=== PATIENT | female | born 1970 | race Caucasian/White ===

== ENCOUNTER 2016-08-04 15:29 | Emergency (ER) | payer SELFPAY ==
[~2016-08-04] VITALS: Ht 157.5 cm; Wt 75.0 kg
[2016-08-04 15:50] VITALS: BP 134/81; PULSE 110; RESP 18; TEMP 99.1; O2SAT 99
[2016-08-04] MEDS ORDERED: HYDROmorphone HCL PF 1 MG/ML VIAL IV PUSH ONE ×3 (16:00→19:00)
[2016-08-04 16:30] VITALS: BP 133/82; PULSE 94; RESP 16; O2SAT 98
[2016-08-04 16:35] LABS: AUTOMATED NEUTROPHIL # 5.2 TH/MM3 (1.8-7.7); BASOPHIL # 0.1 TH/MM3 (0-0.2); BASOPHIL % 1.7 % (0.0-2.0); EOSINOPHIL # 0.1 TH/MM3 (0-0.4); EOSINOPHIL % 1.4 % (0.0-4.0); HEMATOCRIT 37.2 % (35.0-46.0); HEMO FLAGS DIFF FINAL; LYMPH % 29.9 % (9.0-44.0); LYMPHOCYTE # 2.6 TH/MM3 (1.0-4.8); MEAN CELL VOLUME 88.4 FL (80.0-100.0); MEAN CORPUSCULAR HEMOGLOBIN 30.7 PG (27.0-34.0); MEAN CORPUSCULAR HGB CONC 34.8 % (32.0-36.0); MONO % 9.1 % (0.0-8.0); NEUT % 57.9 % (16.0-70.0); PLATELET COUNT 366 TH/MM3 (150-450); RED BLOOD COUNT 4.21 MIL/MM3 (4.00-5.30); RED CELL DISTRIBUTION WIDTH 12.4 % (11.6-17.2); WHITE BLOOD COUNT 8.8 TH/MM3 (4.0-11.0)
[2016-08-04 16:42] LABS: CHLORIDE 107 MEQ/L (98-107); POTASSIUM 3.9 MEQ/L (3.5-5.1); SODIUM (NA) 140 MEQ/L (136-145)
[2016-08-04 16:46] LABS: ANION GAP 12 MEQ/L (5-15); BICARBONATE 21.1 MEQ/L (21.0-32.0); BLOOD UREA NITROGEN 8 MG/DL (7-18)
--- NOTE | 2016-08-04 16:46 | PD ---
HPI Chief Complaint: Fall Time Seen by Provider: 15:50 Travel History International Travel<30 days: No Contact w/Intl Traveler<30days: No Traveled to known affect area: No History of Present Illness HPI 46 year-old woman, otherwise healthy, was standing on a step stool, about 3 feet in the air, when she stepped backwards lost her footing and fell backwards landing and seated position on her butt and low back and onto her back. States she hit her head lightly as well. She states she has severe pain in her low back. Pain radiates down the left leg. No numbness tingling or weakness. No LOC. No headache. No head pain. Some neck pain. Denies history of neck or back problems. Does not take pain medicines regularly. Otherwise has been feeling generally well and healthy. History Past Medical History Medical History: Denies Significant Hx Tetanus Vaccination: > 5 Years Influenza Vaccination: Yes LMP: 2 weeks ago Social History Alcohol Use: Yes (occas. wine) Tobacco Use: Yes (1/2 ppd cigs) Allergies-Medications (Allergen,Severity, Reaction): Coded Allergies: No Known Allergies (Unverified , 08/04/16) Reported Meds & Prescriptions Reported Meds & Active Scripts Active Reported Ibuprofen 800 Mg Tab 800 Mg PO TID PRN Seroquel (Quetiapine Fumarate) 200 Mg Tab 200 Mg PO HS Xanax (Alprazolam) 0.5 Mg Tab 0.5 Mg PO TID PRN Levothyroxine (Levothyroxine Sodium) 125 Mcg Tab 125 Mcg PO DAILY Review of Systems Except as stated in HPI: all other systems reviewed are Neg Physical Exam Narrative GENERAL: Well-appearing 46 year-old woman, appears uncomfortable, a little bit tearful and diaphoretic. Full spinal mobilization. SKIN: Warm and dry. HEAD: Atraumatic. Normocephalic. EYES: Pupils equal and round. No scleral icterus. No injection or drainage. ENT: No nasal bleeding or discharge. Mucous membranes pink and moist. NECK: Minimal midline tenderness. Cervical collar in place. CARDIOVASCULAR: Regular rate and rhythm. No murmur appreciated. RESPIRATORY: No accessory muscle use. Clear to auscultation. Breath sounds equal bilaterally. GASTROINTESTINAL: Abdomen soft, non-tender, nondistended. Hepatic and splenic margins not palpable. MUSCULOSKELETAL: No obvious deformities. Significant low back tenderness. No step-offs deformities or ecchymosis or bruising. NEUROLOGICAL: Awake and alert. Strength appears full and equal in upper and lower extremities. Normal sensation in upper and lower extremities. Reflexes symmetrically diminished throughout. Data Data Last Documented VS Vital Signs Date Time Temp Pulse Resp B/P Pulse Ox O2 Delivery O2 Flow Rate FiO2 08/04/16 17:40 94 16 133/82 97 Room Air 08/04/16 15:[address] Cerv Spine W/O Contrast (08/04/16 ) Ct Thor Spine W/O Contrast (08/04/16 ) Ct Lumb Spine W/O Contrast (08/04/16 ) Iv Access Insert/Monitor (08/04/16 15:57) Complete Blood Count With Diff (08/04/16 15:57) Comprehensive Metabolic Panel (08/04/16 15:57) Act Partial Throm Time (Ptt) (08/04/16 15:57) Prothrombin Time / Inr (Pt) (08/04/16 15:57) Hydromorphone Pf Inj (Dilaudid Pf Inj) (08/04/16 16:00) Ct Pelvis W/O Iv Contrast (08/04/16 ) Hydromorphone Pf Inj (Dilaudid Pf Inj) (08/04/16 17:30) Labs Laboratory Tests Test 08/04/16 16:23 White Blood Count 8.8 TH/MM3 Red Blood Count 4.21 MIL/MM3 Hemoglobin 12.9 GM/DL Hematocrit 37.2 % Mean Corpuscular Volume 88.4 FL Mean Corpuscular Hemoglobin 30.7 PG Mean Corpuscular Hemoglobin 34.8 % Concent Red Cell Distribution Width 12.4 % Platelet Count 366 TH/MM3 Mean Platelet Volume 7.5 FL Neutrophils (%) (Auto) 57.9 % Lymphocytes (%) (Auto) 29.9 % Monocytes (%) (Auto) 9.1 % Eosinophils (%) (Auto) 1.4 % Basophils (%) (Auto) 1.7 % Neutrophils # (Auto) 5.2 TH/MM3 Lymphocytes # (Auto) 2.6 TH/MM3 Monocytes # (Auto) 0.8 TH/MM3 Eosinophils # (Auto) 0.1 TH/MM3 Basophils # (Auto) 0.1 TH/MM3 CBC Comment DIFF FINAL Differential Comment Prothrombin Time 10.5 SEC Prothromb Time International 1.0 RATIO Ratio Activated Partial 26.5 SEC Thromboplast Time Sodium Level 140 MEQ/L Potassium Level 3.9 MEQ/L Chloride Level 107 MEQ/L Carbon Dioxide Level 21.1 MEQ/L Anion Gap 12 MEQ/L Blood Urea Nitrogen 8 MG/DL Creatinine 0.83 MG/DL Estimat Glomerular Filtration 75 ML/MIN Rate Random Glucose 78 MG/DL Calcium Level 8.9 MG/DL Total Bilirubin 0.2 MG/DL Aspartate Amino Transf 15 U/L (AST/SGOT) Alanine Aminotransferase 34 U/L (ALT/SGPT) Alkaline Phosphatase 89 U/L Total Protein 7.4 GM/DL Albumin 3.7 GM/DL [facility] Medical Decision Making Medical Screen Exam Complete: Yes Emergency Medical Condition: Yes Interpretation(s) LABS: CBC unremarkable. CMP unremarkable. Coags unremarkable CT cervical spine: No acute osseous injury or traumatic listhesis. CT thoracic spine: Mild dextroscoliosis of the dorsal spine with associated multilevel degenerative spurring. No acute osseous injury. CT lumbar spine: Degenerative changes, no osseous injury. CT pelvis: 2 cm likely physiologic follicular cyst in left ovary. Otherwise negative. Differential Diagnosis Back, pelvis injury, strain or sprain, fracture, other Narrative Course Medical decision making INITIAL: Supple 46 year-old woman who presents emergency room with a fall from about 3 feet and near leaning on her butt and back complaining of severe low back pain radiating into her left leg. We'll check CT scan of her neck and back , as well as her bony pelvis. Pain control, reassess. FINAL: Imaging negative for fracture. Patient still extremely painful, difficulty moving. 2 mg of IV Dilaudid so far. We'll give her third dose of IV Dilaudid as well as IV Toradol. We will encourage mobility try to get her up and walking. If she is able to tolerate walking, 1 go home with Naprosyn and Percocet for pain, if not may need admission for pain control. Patient will be signed out to Dr. Grubbs to follow-up on the results of pain treatment , gait trial, and repeat assessment. Diagnosis Primary Impression: Back contusion Qualified Code: S20.229A - Back contusion, unspecified laterality, initial encounter Additional Instructions: Take Naprosyn as prescribed. Take her cassette as prescribed. Take Zonia-Colace to prevent constipation if taking Percocet. Follow up with her primary doctor in 1-2 days. Return emergent department for any worsening pain, numbness tingling or weakness , or any other new or worsening symptoms. Med/Other Pt SpecificInfo: Prescription(s) given Scripts Naproxen (Naprosyn)500 Mg [id number] Mg PO BID PRN (PAIN SCALE 1 TO 10) #20 TAB Prov:Dakotah Walker MD 08/04/16 Oxycodone-Acetaminophen (Percocet)5-325 mg Tab1-2 Tab PO Q6H PRN (PAIN) #20 TAB Ref 0 Prov:Dakotah Walker MD 08/04/16 Disposition: 01 DISCHARGE HOME Condition: Stable Dakotah Walker MD Aug 04, 2016 16:46
[2016-08-04 16:48] LABS: APTT (PATIENT) 26.5 SEC (24.3-30.1); PROTHROMBIN TIME - PATIENT 10.5 SEC (9.8-11.6)
[2016-08-04 16:49] LABS: ALT (GPT) 34 U/L (10-53); AST (GOT) 15 U/L (15-37); GLOMERULAR FILTRATION RATE 75 ML/MIN (>89)
[2016-08-04 16:50] LABS: TOTAL BILIRUBIN ADULT 0.2 MG/DL (0.2-1.0)
[2016-08-04 16:52] LABS: ALKALINE PHOSPHATASE 89 U/L (45-117)
[2016-08-04] MEDS ORDERED: ALPR.5 PO (17:12)
[2016-08-04] MEDS ORDERED: LEVO125T4 PO (17:12)
[2016-08-04] MEDS ORDERED: SERO200T PO (17:12)
[2016-08-04] MEDS ORDERED: IBUP800T23 PO (17:12)
[2016-08-04 17:40] VITALS: BP 133/82; PULSE 94; RESP 16; O2SAT 97
--- NOTE | 2016-08-04 18:24 | RADHPO ---
EXAM DATE/TIME: 08/04/2016 16:58 [facility] COMPARISON: No previous studies available for comparison. INDICATIONS : Fall backwards today, neck and lower back pain. RADIATION DOSE: 26.51 CTDIvol (mGy) MEDICAL HISTORY : None SURGICAL HISTORY : None. ENCOUNTER: Initial ACUITY: 1 day PAIN SCALE: 3/10 LOCATION: Bilateral neck TECHNIQUE: Volumetric scanning of the cervical spine was performed. Multiplanar reconstructions in the sagittal, coronal and oblique axial planes were performed. Using automated exposure control and adjustment o f the mA and/or kV according to patient size, radiation dose was kept as low as reasonably achievable to obtain optimal diagnostic quality images. FINDINGS: Sagittal and coronal reconstructions show multilevel degenerative disc disease most prominent from C4 -C5 through C6-C7 with loss of disc height and uncovertebral ridging. Vertebral body heights are ankit ntained throughout withiout evidence of an acute fracture. The uncovertebral ridging at C5-C6 and C6 -C7 does encroach on the spinal canal anteriorly. Spinal canal is otherwise adequate. Detailed axial images as follows: C2-C3: The bony spinal canal is normal in size. No evidence of disc bulge or herniation. The neural forami na are bilaterally patent. C3-C4: The bony spinal canal is normal in size. No evidence of disc bulge or herniation. The neural forami na are bilaterally patent. C4-C5: Predominantly anteriorly directed spur. Spinal canal and neural foramina are patent. C5-C6: Diffuse uncovertebral ridging. This encroaches on the anterior epidural space and both neural forami na. I do not see obvious cord compromise but there may be some compromise of the exiting C6 nerve ro ots. C6-C7: Uncovertebral ridging. Again, encroachment on the anterior epidural space and both neural foramina w ith possible compromise of the exiting C7 nerve roots. C7-T1: The bony spinal canal is normal in size. No evidence of disc bulge or herniation. The neural forami na are bilaterally patent. CONCLUSION: 1. Degenerative disc disease from C4-C5 through C6-C7. 2. This is most severe at C5-C6 and C6-C7 where there is some encroachment on the anterior epidural space and both neural foramina. This may be severe enough to compromise the exiting C6 and C7 nerve roots bilaterally. 3. No acute osseous injury or traumatic listhesis. Chadd Harris MD on August 04, 2016 at 18:09 Board Certified Radiologist. This report was verified electronically.
--- NOTE | 2016-08-04 18:38 | RADHPO ---
EXAM DATE/TIME: 08/04/2016 17:07 [facility] COMPARISON: No previous studies available for comparison. INDICATIONS : Fall backwards today, neck and lower back pain. RADIATION DOSE: 43.91 CTDIvol (mGy) ; Combined studies MEDICAL HISTORY : None SURGICAL HISTORY : None. ENCOUNTER: Initial ACUITY: 1 day PAIN SCALE: 10/10 LOCATION: Lower back TECHNIQUE: Volumetric scanning of the thoracic spine was performed. Multiplanar reconstructions in the sagittal , coronal and oblique axial planes were performed. Using automated exposure control and adjustment o f the mA and/or kV according to patient size, radiation dose was kept as low as reasonably achievable to obtain optimal diagnostic quality images. FINDINGS: The sagittal and coronal reconstructions show a mild dextroscoliosis of the dorsal spine with associa fred multilevel degenerative spurring. However, vertebral body heights are maintained without fractur e or listhesis. The spinal canal appears to be adequate throughout. Detailed axial images as follows: . T1-T2: Normal. T2-T3: The thecal sac has a normal diameter. No evidence of disc bulge or protrusion. T3-T4: The thecal sac has a normal diameter. No evidence of disc bulge or protrusion. T4-T5: The thecal sac has a normal diameter. No evidence of disc bulge or protrusion. T5-T6: The thecal sac has a normal diameter. No evidence of disc bulge or protrusion. T6-T7: The thecal sac has a normal diameter. No evidence of disc bulge or protrusion. T7-T8: The thecal sac has a normal diameter. No evidence of disc bulge or protrusion. T8-T9: The thecal sac has a normal diameter. No evidence of disc bulge or protrusion. T9-T10: The thecal sac has a normal diameter. No evidence of disc bulge or protrusion. T10-T11: The thecal sac has a normal diameter. No evidence of disc bulge or protrusion. T11-T12: The thecal sac has a normal diameter. No evidence of disc bulge or protrusion. T12-L1: The thecal sac has a normal diameter. No evidence of disc bulge or protrusion. CONCLUSION: 1. Mild dextroscoliosis of the dorsal spine with associated multilevel degenerative spurring. 2. No acute osseous injury. Chadd Harris MD on August 04, 2016 at 18:33 Board Certified Radiologist. This report was verified electronically.
--- NOTE | 2016-08-04 18:43 | RADHPO ---
EXAM DATE/TIME: 08/04/2016 17:07 [facility] COMPARISON: No previous studies available for comparison. INDICATIONS : Fall backwards today, neck and lower back pain. ORAL CONTRAST: No oral contrast ingested. RADIATION DOSE: 43.91 CTDIvol (mGy) ; Combined studies MEDICAL HISTORY : None SURGICAL HISTORY : None. ENCOUNTER: Initial ACUITY: 1 day PAIN SCALE: 10/10 LOCATION: lower back TECHNIQUE: Volumetric scanning of the pelvis was performed. Using automated exposure control and adjustment of the mA and/or kV according to patient size, radiation dose was kept as low as reasonably achievable t o obtain optimal diagnostic quality images. FINDINGS: BOWEL/MESENTERY: The visualized small and large bowel demonstrate no acute abnormality. There is no free fluid. BLADDER: There is no wall thickening or mass. RETROPERITONEUM: There is no aneurysm or lymphadenopathy. REPRODUCTIVE: Within normal limits. 1.9 cm cyst associated with the left ovary. INGUINAL: There is no lymphadenopathy or hernia. MUSCULOSKELETAL: Within normal limits for patient age. CONCLUSION: 1. A 2 cm, likely physiologic follicular cyst the left ovary. 2. Otherwise negative with no acute visceral trauma or fracture. Chadd Harrsi MD on August 04, 2016 at 18:39 Board Certified Radiologist. This report was verified electronically.
--- NOTE | 2016-08-04 18:48 | RADHPO ---
EXAM DATE/TIME: 08/04/2016 17:07 [facility] COMPARISON: No previous studies available for comparison. INDICATIONS : Fall backwards today, neck and lower back pain. RADIATION DOSE: 43.91 CTDIvol (mGy) ; Combined studies MEDICAL HISTORY : None SURGICAL HISTORY : None. ENCOUNTER: Initial ACUITY: 1 day PAIN SCALE: 10/10 LOCATION: Lower back TECHNIQUE: Volumetric scanning of the lumbar spine was performed. Multiplanar reconstructions in the sagittal, coronal and oblique axial planes were performed. Using automated exposure control and adjustment of the mA and/or kV according to patient size, radiation dose was kept as low as reasonably achievable t o obtain optimal diagnostic quality images. FINDINGS: Sagittal and coronal reconstructions show degenerative disc disease most prominent at the lumbosacral junction with a diffuse disc bulge and some Modic endplate changes. Minimal marginal spurs are seen at multiple lumbar levels. Vertebral body heights are maintained throughout without evidence of an acute fracture. Minimal grade I retrolisthesis of L5 on S1. Spinal canal appears to be adequate thr oughout. Detailed axial images as follows: T12-L1: The thecal sac has a normal diameter. No evidence of disc bulge or protrusion. The neural foramina are patent bilaterally. L1-L2: The thecal sac has a normal diameter. No evidence of disc bulge or protrusion. The neural foramina are patent bilaterally. L2-L3: The thecal sac has a normal diameter. No evidence of disc bulge or protrusion. The neural foramina are patent bilaterally. L3-L4: The thecal sac has a normal diameter. No evidence of disc bulge or protrusion. The neural foramina are patent bilaterally. L4-L5: The thecal sac has a normal diameter. No evidence of disc bulge or protrusion. The neural foramina are patent bilaterally. L5-S1: Mild, diffuse disc bulge with associated marginal spurring. Spinal canal and neural foramina remain adequate. CONCLUSION: 1. Degenerative disc disease at the lumbosacral junction with a mild, diffuse disc bulge and Modic e ndplate changes as well as grade I retrolisthesis of L5 on S1. 2. Despite the degenerative changes, the spinal canal and neural foramina appear to be adequate thro ughout without nerve root compromise. 3. No acute osseous injury. Chadd Harris MD on August 04, 2016 at 18:37 Board Certified Radiologist. This report was verified electronically.
[2016-08-04] MEDS ORDERED: NAPR500 PO (18:57)
[2016-08-04] MEDS ORDERED: PERC5TAB12 PO (18:57)
[2016-08-04 19:00] VITALS: BP 126/87; PULSE 92; RESP 18; O2SAT 94
[2016-08-04] MEDS ORDERED: KETOROLAC TROMETHAMINE 30 MG/ML (IVP) VIAL IV PUSH ONE (19:00)
[2016-08-04 19:36] VITALS: RESP 16
[2016-08-04] MEDS ORDERED: ONDANSETRON HCL 4 MG/2 ML VIAL IV ONE (20:15)
[2016-08-04] MEDS ORDERED: HYDROmorphone HCL PF 1 MG/ML VIAL IVP ONE (20:15)
[2016-08-04 20:40] VITALS: BP 128/75
--- NOTE | 2016-08-14 06:24 | PD ---
Physical Exam Time Seen by Provider: 06:[address] Walker left this patient with me to see if the patient was able to ambulate or needs to be admitted for pain control. The imaging shows no fracture. Data Data Orders Ct Cerv Spine W/O Contrast (08/04/16 ) Ct Thor Spine W/O Contrast (08/04/16 ) Ct Lumb Spine W/O Contrast (08/04/16 ) Iv Access Insert/Monitor (08/04/16 15:57) Complete Blood Count With Diff (08/04/16 15:57) Comprehensive Metabolic Panel (08/04/16 15:57) Act Partial Throm Time (Ptt) (08/04/16 15:57) Prothrombin Time / Inr (Pt) (08/04/16 15:57) Hydromorphone Pf Inj (Dilaudid Pf Inj) (08/04/16 16:00) Ct Pelvis W/O Iv Contrast (08/04/16 ) Hydromorphone Pf Inj (Dilaudid Pf Inj) (08/04/16 17:30) Hydromorphone Pf Inj (Dilaudid Pf Inj) (08/04/16 19:00) Ketorolac Inj (Toradol Inj) (08/04/16 19:00) Hydromorphone Pf Inj (Dilaudid Pf Inj) (08/04/16 20:15) Ondansetron Inj (Zofran Inj) (08/04/16 20:15) [facility] Medical Record Reviewed: Yes Supervised Visit with TERRI: Yes Differential Diagnosis Back contusion, acute lumbar strain Narrative Course The patient is able to ambulate adequately and wants to go home. Dr. Walker is already written Naprosyn and Percocet prescriptions. She does not want admission. Diagnosis Primary Impression: Back contusion Qualified Code: S20.229A - Back contusion, unspecified laterality, initial encounter Patient Instructions: General Instructions, Contusion in Adults (ED), Back Pain (ED) Departure Forms: Tests/Procedures Additional Instruction: Take Naprosyn as prescribed. Take her cassette as prescribed. Take Zonia-Colace to prevent constipation if taking Percocet. Follow up with her primary doctor in 1-2 days. Return emergent department for any worsening pain, numbness tingling or weakness , or any other new or worsening symptoms. Scripts Naproxen (Naprosyn)500 Mg [id number] Mg PO BID PRN (PAIN SCALE 1 TO 10) #20 TAB Prov:Dakotah Walker MD 08/04/16 Oxycodone-Acetaminophen (Percocet)5-325 mg Tab1-2 Tab PO Q6H PRN (PAIN) #20 TAB Ref 0 Prov:Dakotah Walker MD 08/04/16 Disposition: 01 DISCHARGE HOME Condition: Stable Vito Grubbs MD Aug 14, 2016 06:24
== END 2016-08-04 20:52 | disposition home or self-care (01) ==
LOC: PHED 15:29
DX: S30.0XXA Contusion of lower back and pelvis, initial encounter (principal); M79.605 Pain in left leg; M54.2 Cervicalgia; F17.200 Nicotine dependence, unspecified, uncomplicated; W10.8XXA Fall (on) (from) other stairs and steps, initial encounter
CPT/HCPCS: 72125; 72128; 72131; 72192; 80053; 85025; 85610; 85730; 96374; 96375; 96376; 99284; J1170; J1885